=== PATIENT | male | born 1990 | race Caucasian/White ===

== ENCOUNTER 2023-05-19 00:42 | Emergency (ER) | payer SELFPAY ==
[2023-05-19] MEDS ORDERED: Silver Nitrate Applicator Each TOP ONE (01:04)
== END 2023-05-19 01:39 | disposition home or self-care (01) ==
LOC: DL.ED 00:42
DX: S61.210A Laceration without foreign body of right index finger without damage to nail, initial encounter (principal); W26.0XXA Contact with knife, initial encounter
CPT/HCPCS: 99282